=== PATIENT | male | born 1955 | race Caucasian/White ===

== ENCOUNTER 2019-05-23 12:49 | Outpatient (CLI) | payer MEDICARE | END 2019-05-23 12:50 | disposition home or self-care (01) | LOC: WOUND 12:49 | PROVIDERS: ATTEND Surgery | DX: T25.031A Burn of unspecified degree of right toe(s) (nail), initial encounter (principal); T31.0 Burns involving less than 10% of body surface; E11.621 Type 2 diabetes mellitus with foot ulcer; L97.512 Non-pressure chronic ulcer of other part of right foot with fat layer exposed; L84 Corns and callosities; I10 Essential (primary) hypertension; E78.5 Hyperlipidemia, unspecified; K22.2 Esophageal obstruction; Z87.891 Personal history of nicotine dependence; X12.XXXA Contact with other hot fluids, initial encounter; Y93.89 Activity, other specified; Y92.89 Other specified places as the place of occurrence of the external cause; Y99.8 Other external cause status | CPT/HCPCS: 16020; G0463; 99214 ==

== ENCOUNTER 2019-05-30 13:12 | Outpatient (CLI) | payer MEDICARE | END 2019-05-30 13:13 | disposition home or self-care (01) | LOC: WOUND 13:12 | PROVIDERS: ATTEND Surgery | DX: E11.621 Type 2 diabetes mellitus with foot ulcer (principal); L97.512 Non-pressure chronic ulcer of other part of right foot with fat layer exposed; L84 Corns and callosities; I10 Essential (primary) hypertension; E78.5 Hyperlipidemia, unspecified; K22.2 Esophageal obstruction; Z87.891 Personal history of nicotine dependence | CPT/HCPCS: 99213; G0463 ==